=== PATIENT | male | born 1935 | race Caucasian/White ===

== ENCOUNTER 2017-08-17 18:16 | Emergency (ER) | payer OTHER, MEDICARE ==
[2017-08-17 18:38] VITALS: BP 114/41; PULSE 42; TEMP 97.7; BMI 29.7
--- NOTE | 2017-08-17 18:54 | PDOC ---
History of Present Illness <Leila Reyna - Last Filed: 08/17/17 19:02> <Haresh Trevizo - Last Filed: 08/18/17 01:55> - History of Present Illness Initial Comments: 08/17/17 18:50 "The patient is a 81 year old male with history of hypertension, hyperlipidemia , CAD s/p stent, who presents to the ED complaining of several days of cough, congestion, and shortness of breath. He describes his shortness of breath as worse with walking and lying flat. 2 days ago he was seen by his doctor who started him on cough syrup and antibiotics without any improvement. Pt denies fever or chills. No chest pain. No nausea, vomiting, or diaphoresis. He does report some mild b/l LE but states it is unchanged. He denies sick contacts. He denies recent travel or long periods of immobilization. Pt went to [facility] ED last night but was in the waiting room for 5 hours and left prior to eval. PCP: Dr. Sorto" <Ash Gtz - Last Filed: 08/18/17 07:13> - General Chief Complaint: Respiratory Stated Complaint: COOGH AND CONGESTION Time Seen by Provider: 08/17/17 18:20 Past History <Leila Reyna - Last Filed: 08/17/17 19:02> <Haresh Trevizo - Last Filed: 08/18/17 01:55> - Past Medical History Cardiac Disorders: Yes (irregular heart beat) COPD: No Diabetes: Yes Hypercholesterolemia: Yes - Surgical History Cardiac Surgery: Yes (bypass 27 years ago) - Suicide/Smoking/Psychosocial Hx Smoking History: Former smoker Have you smoked in the past 12 months: No If you are a former smoker, when did you quit?: 27 years ago Information on smoking cessation initiated: No Hx Alcohol Use: Yes (wine) Drug/Substance Use Hx: No Substance Use Type: None <Ash Gtz - Last Filed: 08/18/17 07:13> - Past Medical History Allergies/Adverse Reactions: Allergies Allergy/AdvReac Type Severity Reaction Status Date / Time No Known Allergies Allergy Verified 08/17/17 18:33 Home Medications: Ambulatory Orders Aspirin 81 mg PO DAILY 08/17/17 Azithromycin 250 mg PO ASDIR 08/17/17 Glimepiride 2 mg PO DAILY 08/17/17 Metformin HCl [Glucophage] 1,000 mg PO BID 08/17/17 Metoprolol Tartrate 12.5 mg PO BID 08/17/17 Ramipril 10 mg PO DAILY 08/17/17 Rosuvastatin [Crestor -] 20 mg PO DAILY 08/17/17 Torsemide 20 mg PO DAILY 08/17/17 Review of Systems - Review of Systems Comments:: 08/17/17 18:51 "GENERAL/CONSTITUTIONAL: No fever or chills. No weakness. HEAD, EYES, EARS, NOSE AND THROAT: No change in vision. No ear pain or discharge. No sore throat. CARDIOVASCULAR: + SOB, No chest pain RESPIRATORY: No cough, wheezing, or hemoptysis. GASTROINTESTINAL: No nausea, vomiting, diarrhea or constipation. GENITOURINARY: No dysuria, frequency, or change in urination. MUSCULOSKELETAL: No joint or muscle swelling or pain. No neck or back pain. SKIN: No rash NEUROLOGIC: No headache, vertigo, loss of consciousness, or change in strength/ sensation. ENDOCRINE: No increased thirst. No abnormal weight change. HEMATOLOGIC/LYMPHATIC: No anemia, easy bleeding, or history of blood clots. ALLERGIC/IMMUNOLOGIC: No hives or skin allergy. " <Ash Gtz - Last Filed: 08/18/17 07:13> *Physical Exam - Vital Signs Last Vital Signs Temp Pulse Resp BP Pulse Ox 97.7 F 42 L 20 114/41 99 08/17/17 18:18 08/17/17 18:18 08/17/17 18:18 08/17/17 18:18 08/17/17 18:18 <Leila Reyna - Last Filed: 08/17/17 19:02> - Vital Signs Last Vital Signs Temp Pulse Resp BP Pulse Ox 97.7 F 42 L 20 114/41 99 08/17/17 18:18 08/17/17 18:18 08/17/17 18:18 08/17/17 18:18 08/17/17 18:18 <Haresh Trevizo - Last Filed: 08/18/17 01:55> - Vital Signs Last Vital Signs Temp Pulse Resp BP Pulse Ox 97.7 F 42 L 20 114/41 99 08/17/17 18:18 08/17/17 18:18 08/17/17 18:18 08/17/17 18:18 08/17/17 18:18 - Physical Exam Comments: 08/17/17 18:52 "GENERAL: Awake, alert, and fully oriented, in no acute distress HEAD: No signs of trauma EYES: PERRLA, EOMI, sclera anicteric, conjunctiva clear ENT: Auricles normal inspection, hearing grossly normal, nares patent, oropharynx clear without exudates. Moist mucosa NECK: Nontender, no stepoffs, Normal ROM, supple, no lymphadenopathy, JVD, or masses LUNGS: + bilateral rales, no wheezes/rhonchi HEART: Regular rate and rhythm, normal S1 and S2, no murmurs, rubs or gallops ABDOMEN: Soft, nontender, normoactive bowel sounds. No guarding, no rebound. No masses EXTREMITIES: +1 PE BLE NEUROLOGICAL: Cranial nerves II through XII intact. 5/5 strength and sensation in all extremities, Normal speech, normal gait, normal cerebellar function SKIN: Warm, Dry, normal turgor, no rashes or lesions noted. " <Ash Gtz - Last Filed: 08/18/17 07:13> ED Treatment Course - LABORATORY CBC & Chemistry Diagram: 08/17/17 19:00 08/17/17 19:00 - ADDITIONAL ORDERS Additional order review: Laboratory Results 08/17/17 08/17/17 08/17/17 19:00 19:00 19:00 PT with INR INR PTT (Actin FS) VBG pH 7.39 POC VBG pCO2 46.2 POC VBG pO2 23.4 L Mixed VBG HCO3 27.1 H Sodium 136 Potassium 4.3 Chloride 99 Carbon Dioxide 26 Anion Gap 11 BUN 49 H Creatinine 1.5 H Creat Clearance w eGFR 45.14 Random Glucose 124 H Calcium 9.1 Total Bilirubin 0.9 AST 23 ALT 12 Alkaline Phosphatase 33 Creatine Kinase 115 Troponin I < 0.03 B-Natriuretic Peptide Total Protein 6.7 Albumin 3.8 08/17/17 08/17/17 19:00 19:00 PT with INR 12.6 INR 1.13 PTT (Actin FS) 25.8 L VBG pH POC VBG pCO2 POC VBG pO2 Mixed VBG HCO3 Sodium Potassium Chloride Carbon Dioxide Anion Gap BUN Creatinine Creat Clearance w eGFR Random Glucose Calcium Total Bilirubin AST ALT Alkaline Phosphatase Creatine Kinase Troponin I B-Natriuretic Peptide 1730.20 H Total Protein Albumin 08/17/17 19:00 RBC 4.07 MCV 87.9 MCHC 33.7 RDW 14.7 MPV 12.6 H Neutrophils % 52.1 Lymphocytes % 27.6 Monocytes % 16.2 H Eosinophils % 3.6 Basophils % 0.5 - Medications Given in the ED: ED Medications Discontinued Medications Generic Name Dose Route Start Last Admin Trade Name Burtq PRN Reason Stop Dose Admin Furosemide 40 mg 08/17/17 21:12 08/17/17 21:17 Lasix Injection - IVPUSH 08/17/17 21:13 40 mg ONCE ONE Administration <Haresh Trevizo - Last Filed: 08/18/17 01:55> - LABORATORY CBC & Chemistry Diagram: 08/17/17 19:00 08/17/17 19:00 - RADIOLOGY Radiology Studies Ordered: Category Date Time Status CHEST PA & LAT [RAD] Stat Radiology 08/17/17 18:48 Ordered <Ash Gtz - Last Filed: 08/18/17 07:13> Medical Decision Making - Medical Decision Making 08/18/17 01:55 improved after ED mgmt labs, CXR reviewed ambulatory in and around ED without distress elevated BNP but cxr clear and no hypoxia diuresed in ED PCP fu for continuing care <Haresh Trevizo - Last Filed: 08/18/17 01:55> - Medical Decision Making 08/17/17 18:53 81 M with several days of worsening cough, TOUSSAINT, orthopnea. Exam notable for bilateral rales and LE edema, consistent with CHF. Also consider ACS given pt's h/o stents, though he denies chest pain. Will r/o PNA with CXR. Pt without asymmetric leg swelling to suggest DVT. - Labs, trop, BNP - EKG - CXR 08/17/17 19:00 Pt signed out to Dr. Trevizo at 7pm, pending labwork, CXR, EKG, and re- evaluation. <Ash Gtz - Last Filed: 08/18/17 07:13> *DC/Admit/Observation/Transfer <Leila Reyna - Last Filed: 08/17/17 19:02> <Haresh Trevizo - Last Filed: 08/18/17 01:55> <Ash Gtz - Last Filed: 08/18/17 07:13> Diagnosis at time of Disposition: Pulmonary edema Qualifiers: Chronicity: acute Qualified Code(s): J81.0 - Acute pulmonary edema - Discharge Dispostion Disposition: HOME Condition at time of disposition: Good - Referrals Referrals: Garry Sorto [Primary Care Provider] - Call tomorrow - Patient Instructions Printed Discharge Instructions: DI for Heart Failure
--- NOTE | 2017-08-17 19:09 | PDOC ---
History of Present Illness - General Chief Complaint: Respiratory Stated Complaint: COOGH AND CONGESTION Time Seen by Provider: 08/17/17 18:20 Past History - Past Medical History Allergies/Adverse Reactions: Allergies Allergy/AdvReac Type Severity Reaction Status Date / Time No Known Allergies Allergy Verified 08/17/17 18:33 Home Medications: Ambulatory Orders Aspirin 81 mg PO DAILY 08/17/17 Azithromycin 250 mg PO ASDIR 08/17/17 Glimepiride 2 mg PO DAILY 08/17/17 Hydrochlorothiazide 12.5 mg PO DAILY 08/17/17 Metformin HCl [Glucophage] 1,000 mg PO BID 08/17/17 Metoprolol Tartrate 12.5 mg PO BID 08/17/17 Ramipril 10 mg PO DAILY 08/17/17 Rosuvastatin [Crestor -] 20 mg PO DAILY 08/17/17 Cardiac Disorders: Yes (irregular heart beat) COPD: No Diabetes: Yes Hypercholesterolemia: Yes - Surgical History Cardiac Surgery: Yes (bypass 27 years ago) - Suicide/Smoking/Psychosocial Hx Smoking History: Former smoker Have you smoked in the past 12 months: No If you are a former smoker, when did you quit?: 27 years ago Information on smoking cessation initiated: No Hx Alcohol Use: Yes (wine) Drug/Substance Use Hx: No Substance Use Type: None *Physical Exam - Vital Signs Last Vital Signs Temp Pulse Resp BP Pulse Ox 97.7 F 42 L 20 114/41 99 08/17/17 18:18 08/17/17 18:18 08/17/17 18:18 08/17/17 18:18 08/17/17 18:18 *DC/Admit/Observation/Transfer - Discharge Dispostion Condition at time of disposition: Fair - Referrals - Patient Instructions - Post Discharge Activity
[2017-08-17 19:34] LABS: BASO % 0.5 % (0-2.0); EOS % 3.6 % (0-4.5); HEMATOCRIT 35.7 % (35.4-49); HEMOGLOBIN 12.1 GM/dl (11.7-16.9); LYMPH % 27.6 % (8-40); MCH 29.6 pg (25.7-33.7); MCHC 33.7 g/dl (32.0-35.9); MEAN CELL VOLUME 87.9 fl (80-96); MEAN PLT VOLUME 12.6 fl (7.5-11.1); MONO % 16.2 % (3.8-10.2); NEUT % 52.1 % (42.8-82.8); PLATELET COUNT 176 K/MM3 (134-434); RBC 4.07 M/mm3 (4.00-5.60); RDW 14.7 % (11.9-15.9); WHITE BLOOD COUNT 6.2 K/mm3 (4.0-10.8)
[2017-08-17 19:39] LABS: ALBUMIN 3.8 g/dl (3.5-5.0); ALK PHOS 33 U/L (32-92); ANION GAP 11 (8-16); BILIRUBIN,TOTAL 0.9 mg/dl (0.2-1.0); BLOOD UREA NITROGEN 49 mg/dl (7-18); CALCIUM 9.1 mg/dl (8.4-10.2); CHLORIDE 99 mmol/L (98-107); CO2 26 mmol/L (22-28); CREATININE 1.5 mg/dl (0.6-1.3); GLUCOSE,RANDOM 124 mg/dl (74-106); POTASSIUM 4.3 mmol/L (3.5-5.1); SGOT/AST 23 U/L (10-42); SGPT/ALT 12 U/L (10-40); SODIUM 136 mmol/L (136-145); TOT PROT 6.7 g/dl (6.4-8.3)
[2017-08-17 20:01] LABS: ACTIVATED PTT 25.8 SECONDS (24.0-38.9)
[2017-08-17 20:05] LABS: INR 1.13 (0.82-1.09); PROTHROMBIN TIME (PATIENT) 12.6 SEC (10.2-13.0)
[2017-08-17 20:28] LABS: VENOUS PC02 46.2 mmHg (38-52); VENOUS PH 7.39 (7.32-7.42); VENOUS PO2 23.4 mmHg (28-48)
[2017-08-17] MEDS ORDERED: FUROSEMIDE 40 MG/4 ML INJECTABLE VIAL IVPUSH ONE (21:12)
[2017-08-17] MEDS ORDERED: FUROSEMIDE 40 MG/4 ML INJECTABLE VIAL ONE (21:15)
--- NOTE | 2017-08-18 10:01 | EKG ---
Test Reason : Blood Pressure : / mmHG Vent. Rate : 079 BPM Atrial Rate : 079 BPM P-R Int : 230 ms QRS Dur : 092 ms QT Int : 418 ms P-R-T Axes : 058 -13 039 degrees QTc Int : 479 ms SINUS RHYTHM WITH 1ST DEGREE A-V BLOCK WITH FREQUENT PREMATURE VENTRICULAR COMPLEXES NO PREVIOUS ECGS AVAILABLE Confirmed by JADE ORTEGA MD [id number]) on 08/18/2017 10:01:15 AM Referred By: DR RUBIO Confirmed By:JADE ORTEGA MD
== END 2017-08-17 21:45 | disposition home or self-care (01) ==
LOC: FER 18:16 → SUPCPDRO 18:16 → FER 21:45
PROC: 3E033GC Introduction of Other Therapeutic Substance into Peripheral Vein, Percutaneous Approach (ICD-10-PCS; principal; 2017-08-17)
DX: J81.0 Acute pulmonary edema (principal); I10 Essential (primary) hypertension; I25.10 Atherosclerotic heart disease of native coronary artery without angina pectoris; I49.9 Cardiac arrhythmia, unspecified; E78.5 Hyperlipidemia, unspecified; E11.9 Type 2 diabetes mellitus without complications; Z95.5 Presence of coronary angioplasty implant and graft; Z95.1 Presence of aortocoronary bypass graft; Z87.891 Personal history of nicotine dependence; Z79.82 Long term (current) use of aspirin; Z79.84 Long term (current) use of oral hypoglycemic drugs
CPT/HCPCS: 36415; 71046-TC-FY; 80053; 82550; 82803; 83880; 84484; 85025; 85610; 85730; 93005; 99282-25